=== PATIENT | female | born 1955 | race Caucasian/White ===

== ENCOUNTER 2018-02-02 13:34 | Emergency (ER) | payer OTHER ==
[2018-02-02] MEDS: ACETAMINOPHEN 325 MG TAB PO (14:09)
[2018-02-02] MEDS: IBUPROFEN 600 MG TAB PO (14:09)
[2018-02-02] MEDS: DOXYCYCLINE 100 MG TAB PO (14:41)
== END 2018-02-02 16:18 | disposition home or self-care (01) ==
LOC: FTE 13:34
DX: J18.9 Pneumonia, unspecified organism (principal); I10 Essential (primary) hypertension; E03.9 Hypothyroidism, unspecified
CPT/HCPCS: 71045; 99284-25